=== PATIENT | male | born 1985 | race Hispanic/Latino ===

== ENCOUNTER 2017-10-24 20:47 | Emergency (ER) | payer OTHER ==
[2017-10-24 21:30] VITALS: TEMP 98.6
[2017-10-24] MEDS ORDERED: Amoxicillin-Clav 875-125 mg Tab PO STA (21:47)
[2017-10-24] MEDS ORDERED: Rabies Immune Globulin 150 INTLU/ML VIAL IM ONE (21:47)
--- NOTE | 2017-10-24 21:55 | ED PDOC ---
HPI: Skin/Bite Injury Time Seen by Provider: 10/24/17 21:51 Chief Complaint (Nursing): Bite Chief Complaint (Provider): Animal Bite/Scratch History Per: Patient History/Exam Limitations: no limitations Onset/Duration Of Symptoms: Hrs Current Symptoms Are (Timing): Still Present Additional Complaint(s): 32 y/o male presents to the ED complaining of a dog bite/scratch, onset prior to arrival. 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 Patient reports he does not know bulk delivery driver or if the dog's vaccinations are up to date. Patient reports of receiving a tetanus shot 2-3 years ago and a rabies shot approximately 12 years ago. PMD: In [place] Past Medical History Reviewed: Historical Data, Nursing Documentation, Vital Signs Vital Signs: Last Vital Signs Temp 98.6 F 10/24/17 21:29 Pulse 67 10/24/17 21:29 Resp 18 10/24/17 21:29 BP 149/88 10/24/17 21:29 Pulse Ox 99 10/24/17 21:58 - Medical History PMH: HTN - Surgical History Surgical History: No Surg Hx - Family History Family History: States: No Known Family Hx - Home Medications Home Medications: Ambulatory Orders Medication Instructions Recorded Amoxicillin/Clavulanate [Augmentin 1 tab PO BID #9 tab 10/24/17 875 MG-125 MG] - Allergies Allergies/Adverse Reactions: Allergies Allergy/AdvReac Type Severity Reaction Status Date / Time No Known Allergies Allergy Verified 10/24/17 21:27 Review of Systems ROS Statement: Except As Marked, All Systems Reviewed And Found Negative Skin: Positive for: Other (Animal Bite/Scratch ) Physical Exam - Reviewed Nursing Documentation Reviewed: Yes Vital Signs Reviewed: Yes - Physical Exam Appears: Positive for: No Acute Distress Head Exam: Positive for: ATRAUMATIC Skin: Positive for: Normal Color, Warm Eye Exam: Positive for: Normal appearance Neck: Positive for: Normal, Painless ROM Cardiovascular/Chest: Positive for: Other (2.5 cm bleeding, superficial laceration noted on the left chest). Negative for: Bradycardia, Tachycardia Respiratory: Negative for: Accessory Muscle Use, Respiratory Distress Extremity: Positive for: Normal ROM. Negative for: Deformity Neurologic/Psych: Positive for: Alert, Oriented. Negative for: Motor/Sensory Deficits - ECG O2 Sat by Pulse Oximetry: 99 (RA) Pulse Ox Interpretation: Normal - Progress ED Course And Treament: Rabies immunoglobulin 7.7 ml of 150IU/ml infiltrated around dog bite. remaining 4 ml given deltoid; rabies vaccine 2.5 IM x 1 dose augmentin 875mg x 1 dose Medical Decision Making Medical Decision Making: Time: 2146 Plan: -- Augmentin 875 mg - 125 mg Tab PO -- Imogam 1,760 intlu IM -- Rabavery Vaccine Inj 2.5 units IM Scribe Attestation: Documented by Darvin Sanders, acting as a scribe for Noe Barrientos PA-C. Provider Scribe Attestation: All medical record entries made by the Scribe were at my direction and personally dictated by me. I have reviewed the chart and agree that the record accurately reflects my personal performance of the history, physical exam, medical decision making, and the department course for this patient. I have also personally directed, reviewed, and agree with the discharge instructions and disposition. Disposition - Clinical Impression Clinical Impression: Animal bite wound - Patient ED Disposition Is Patient to be Admitted: No - Disposition Disposition: Routine/Home Disposition Time: 23:21 Condition: FAIR Prescriptions: Amoxicillin/Clavulanate [Augmentin 875 MG-125 MG] 1 tab PO BID #9 tab Instructions: Animal Bites (DC)
[2017-10-24] MEDS ORDERED: Amoxicillin-Clav 875-125 mg Tab PO ONE (22:42)
[2017-10-24 23:29] VITALS: BP 132/81; PULSE 80; RESP 15; O2SAT 100
== END 2017-10-24 23:28 | disposition home or self-care (01) ==
LOC: CANPREER → H.ER 20:47
DX: S20.372A Other superficial bite of left front wall of thorax, initial encounter (principal); W54.0XXA Bitten by dog, initial encounter; I10 Essential (primary) hypertension; Z23 Encounter for immunization

== ENCOUNTER 2017-10-27 21:22 | Emergency (ER) | payer OTHER ==
[2017-10-27 21:40] VITALS: BP 124/78; PULSE 81; RESP 15; TEMP 98.4; O2SAT 100
--- NOTE | 2017-10-27 22:11 | ED PDOC ---
HPI: General Adult Time Seen by Provider: 10/27/17 21:37 Chief Complaint (Nursing): Bite History Per: Patient Additional Complaint(s): Pt. is here for his 2nd rabies vaccination. Offers no complaints. Has been compliant with his Augmentin. Past Medical History Reviewed: Historical Data, Nursing Documentation, Vital Signs Vital Signs: Last Vital Signs Temp 98.4 F 10/27/17 21:38 Pulse 81 10/27/17 21:38 Resp 15 10/27/17 21:38 BP 124/78 10/27/17 21:38 Pulse Ox 100 10/27/17 21:38 - Medical History PMH: HTN - Family History Family History: States: No Known Family Hx - Home Medications Home Medications: Ambulatory Orders Medication Instructions Recorded Amoxicillin/Clavulanate [Augmentin 1 tab PO BID #9 tab 10/24/17 875 MG-125 MG] - Allergies Allergies/Adverse Reactions: Allergies Allergy/AdvReac Type Severity Reaction Status Date / Time No Known Allergies Allergy Verified 10/24/17 21:27 Review of Systems ROS Statement: Except As Marked, All Systems Reviewed And Found Negative Physical Exam - Physical Exam Appears: Positive for: Well, Non-toxic, No Acute Distress Skin: Positive for: Normal Color, Warm. Negative for: Rash Eye Exam: Positive for: Normal appearance Cardiovascular/Chest: Positive for: Other (Minimal ecchymosis to the L breast without erythema, discharge, or swelling) Neurologic/Psych: Positive for: Alert, Oriented (x3) - ECG O2 Sat by Pulse Oximetry: 100 - Progress ED Course And Treament: Rabies vaccine ordered. Advised to return to ED for 3rd rabies vaccine as scheduled and to continue Augmentin as previously prescribed. Disposition - Clinical Impression Clinical Impression: Need for rabies vaccination - Patient ED Disposition Is Patient to be Admitted: No - Disposition Disposition: Routine/Home Disposition Time: 21:44 Condition: STABLE Additional Instructions: Continue taking Augmentin as previously prescribed and return to ED for 3rd rabies vaccine as previously scheduled. Instructions: Rubella Vaccine Forms: [employer] (Tajik) Print Language: SAO TOMEAN
== END 2017-10-27 22:11 | disposition home or self-care (01) ==
LOC: H.ER 21:22
DX: Z29.14 Encounter for prophylactic rabies immune globulin (principal); I10 Essential (primary) hypertension

== ENCOUNTER 2017-10-31 22:08 | Emergency (ER) | payer OTHER ==
[2017-10-31 22:24] VITALS: BP 110/72; PULSE 69; RESP 18; TEMP 98.2; O2SAT 99; BMI 30.5
--- NOTE | 2017-10-31 22:29 | ED PDOC ---
HPI: General Adult Time Seen by Provider: 10/31/17 22:22 History Per: Patient Additional Complaint(s): Pt. is here for day 7 rabies vaccination. Offers no complaints. Past Medical History Reviewed: Historical Data, Nursing Documentation, Vital Signs Vital Signs: Last Vital Signs Temp 98.2 F 10/31/17 23:15 Pulse 69 10/31/17 23:15 Resp 18 10/31/17 23:15 BP 110/72 10/31/17 23:15 Pulse Ox 99 11/01/17 00:51 - Medical History PMH: HTN - Family History Family History: States: No Known Family Hx - Home Medications Home Medications: Ambulatory Orders Medication Instructions Recorded Amoxicillin/Clavulanate [Augmentin 1 tab PO BID #9 tab 10/24/17 875 MG-125 MG] - Allergies Allergies/Adverse Reactions: Allergies Allergy/AdvReac Type Severity Reaction Status Date / Time No Known Allergies Allergy Verified 10/31/17 23:15 Review of Systems ROS Statement: Except As Marked, All Systems Reviewed And Found Negative Physical Exam - Physical Exam Appears: Positive for: Well, Non-toxic, No Acute Distress Skin: Positive for: Normal Color, Warm. Negative for: Rash Eye Exam: Positive for: Normal appearance Neurologic/Psych: Positive for: Alert, Oriented (x3) - ECG O2 Sat by Pulse Oximetry: 99 - Progress ED Course And Treament: Rabies vaccination given. Disposition - Clinical Impression Clinical Impression: Need for rabies vaccination - Patient ED Disposition Is Patient to be Admitted: No - Disposition Disposition: Routine/Home Disposition Time: 22:25 Condition: GOOD Additional Instructions: NANCY VILLALPANDO, thank you for letting us take care of you today. Your provider was Eloise Huang MD and you were treated for RABIES SHOT. The emergency medical care you received today was directed at your acute symptoms. If you were prescribed any medication, please fill it and take as directed. It may take several days for your symptoms to resolve. Return to the Emergency Department if your symptoms worsen, do not improve, or if you have any other problems. Please contact your doctor or call one of the physicians/clinics you have been referred to that are listed on the Patient Visit Information form that is included in your discharge packet. Bring any paperwork you were given at discharge with you along with any medications you are taking to your follow up visit. Our treatment cannot replace ongoing medical care by a primary care provider outside of the emergency department. Thank you for allowing the [facility] team to be part of your care today. If you had an X-Ray or CT scan: A Radiologist will review the ED reading if any change in treatment is needed we will contact you. If you had a blood, urine, or wound culture: It will take several days for the results, if any change in treatment is needed we will contact you. If you had an STI test: It will take 48 hours for the results. Please call after 1 week if you have not heard back. Instructions: Rabies Vaccine Forms: [employer] (Czech)
== END 2017-10-31 23:20 | disposition home or self-care (01) ==
LOC: H.ER 22:08
DX: Z29.14 Encounter for prophylactic rabies immune globulin (principal); I10 Essential (primary) hypertension

== ENCOUNTER 2017-11-07 22:54 | Emergency (ER) | payer OTHER ==
[2017-11-07 22:54] VITALS: BMI 30.5
--- NOTE | 2017-11-07 23:59 | ED PDOC ---
HPI: Skin/Bite Injury Time Seen by Provider: 11/07/17 23:13 Chief Complaint (Nursing): Rabies Vaccine Series Chief Complaint (Provider): Rabies Vaccine History Per: Patient History/Exam Limitations: no limitations Current Symptoms Are (Timing): Gone Now Additional Complaint(s): Patient is a 32 year old male who presents for his final rabies vaccine. Patient states on 10/24/17 he was bit by an unknown dog while walking out of an elevator. Patient has completed his course of antibiotics from his initial ED visit and has no complaints at present. Patient states the bite wounds to his chest have completely healed. PMD: Dr Gonsalez ([facility]) Past Medical History Reviewed: Historical Data, Nursing Documentation, Vital Signs Vital Signs: Last Vital Signs Temp 98.3 F 11/07/17 23:05 Pulse 69 11/07/17 23:05 Resp 16 11/07/17 23:05 BP 114/65 11/07/17 23:05 Pulse Ox 97 11/07/17 23:05 - Medical History PMH: GERD, HTN - Surgical History Surgical History: Hernia Repair Other surgeries: right elbow procedure - Family History Family History: States: Unknown Family Hx - Social History Current smoker - smoking cessation education provided: No Alcohol: Social Drugs: Denies - Immunization History Hx Tetanus Toxoid Vaccination: Yes (UTD) - Home Medications Home Medications: Ambulatory Orders Medication Instructions Recorded Amoxicillin/Clavulanate [Augmentin 1 tab PO BID #9 tab 10/24/17 875 MG-125 MG] - Allergies Allergies/Adverse Reactions: Allergies Allergy/AdvReac Type Severity Reaction Status Date / Time No Known Allergies Allergy Verified 10/31/17 23:15 Review of Systems ROS Statement: Except As Marked, All Systems Reviewed And Found Negative Skin: Positive for: Other (Bite wounds healed) Physical Exam - Reviewed Nursing Documentation Reviewed: Yes Vital Signs Reviewed: Yes - Physical Exam Appears: Positive for: Well, Non-toxic, No Acute Distress Head Exam: Positive for: ATRAUMATIC, NORMOCEPHALIC Skin: Positive for: Normal Color, Warm, Dry Eye Exam: Positive for: EOMI, PERRL ENT: Positive for: Other (Mucus membranes moist. Airway patent, (-) stridor.) Neck: Positive for: Painless ROM, Supple Cardiovascular/Chest: Positive for: Regular Rate, Rhythm, Chest Non Tender Respiratory: Positive for: Normal Breath Sounds. Negative for: Decreased Breath Sounds, Accessory Muscle Use, Respiratory Distress Neurologic/Psych: Positive for: Alert, Oriented (x3), Gait (steady in ED). Negative for: Aphasia, Facial Droop - ECG O2 Sat by Pulse Oximetry: 97 (RA) Pulse Ox Interpretation: Normal Medical Decision Making Medical Decision Makin Initial Impression: Rabies Vaccination, Dog Bite Plan: -Rabies IM -Re-evaluation 0000 On re-evaluation, patient offers no complaints. On exam, patient remains AAOx3, in no acute distress. On exam, neck is supple, lungs CTA, cardiac RRR, neuro exam shows no focal findings. VSS, stable for discharge. Diagnostic results d/w the patient in great detail. Dx of rabies vaccination, dog bite(healed) d/w the patient. Based on history, exam and diagnostic results plan will be for discharge and outpatient follow up as needed. Return to the emergency room at any time for any new or worsening symptoms. Patient states he fully agrees with and understands discharge instructions. States that he agrees with the plan and disposition. Verbalized and repeated discharge instructions and plan. I have given the patient opportunity to ask any additional questions. Disposition - Clinical Impression Clinical Impression: Need for rabies vaccination, Dog bite - Patient ED Disposition Is Patient to be Admitted: No Counseled Patient/Family Regarding: Studies Performed, Diagnosis, Need For Followup - Disposition Disposition: Routine/Home Disposition Time: 00:02 Condition: STABLE Additional Instructions: The emergency medical care you received today was directed at your acute symptoms. If you were prescribed any medication, please fill it and take as directed. It may take several days for your symptoms to resolve. Return to the Emergency Department if your symptoms worsen, do not improve, or if you have any other problems. Please contact your doctor in 2 days for re-evaluation and follow up / or call one of the physicians/clinics you have been referred to that are listed on the Patient Visit Information form that is included in your discharge packet. Bring any paperwork you were given at discharge with you along with any medications you are taking to your follow up visit. Our treatment cannot replace ongoing medical care by a primary care provider (PCP) outside of the emergency department. Instructions: Rabies Vaccine, Animal Bites (DC) Print Language: YORUBA - POA Present On Arrival: None
[2017-11-08 00:12] VITALS: BP 122/78; PULSE 78; RESP 20; TEMP 98; O2SAT 100
== END 2017-11-08 00:10 | disposition home or self-care (01) ==
LOC: H.ER 22:54
DX: Z29.14 Encounter for prophylactic rabies immune globulin (principal); I10 Essential (primary) hypertension